=== PATIENT | female | born 1975 | race Caucasian/White ===

== ENCOUNTER 2017-04-17 11:45 | Emergency (ER) | payer SELFPAY ==
[~2017-04-17] VITALS: Ht 167.6 cm; Wt 86.2 kg
[2017-04-17 12:05] VITALS: BP 136/100
--- NOTE | 2017-04-17 12:28 | PHYS DOC ---
Past Medical History Past Medical History: Arthritis, Hypertension Past Surgical History: Cholecystectomy, Hysterectomy Alcohol Use: None Drug Use: None Adult General Chief Complaint Chief Complaint: Neck Pain [facility] HPI Patient is a 41 year old nail presents emergency Department stating approximately 3 weeks ago she fell down her stairs and was taken to another emergency department. She states that she had a fracture in her foot and was in a cam boot in which she has elected to take off on her own. Patient states that she also developed neck pain and discomfort. She states that she went back to the emergency department and they provided her with Valium. Patient is currently out of the Valium at this time and is presenting to the emergency department for pain control. Patient states that she stated she tried to follow- up with a doctor for her neck pain and discomfort and they did not accept her insurance. She states since that time her insurance is no longer in affect. Patient's denies any numbness or tingling in her lower extremities. She denies any further trauma or injury. She states that she is taken Aleve and ibuprofen with no relief. Patient states that she is allergic to Flexeril Toradol morphine and tramadol. Patient states that she has had a hysterectomy in the past. 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 Review of Systems Review of Systems Constitutional: Denies fever or chills [] Eyes: Denies change in visual acuity, redness, or eye pain [] HENT: Denies nasal congestion or sore throat [] Respiratory: Denies cough or shortness of breath [] Cardiovascular: No additional information not addressed in HPI [] GI: Denies abdominal pain, nausea, vomiting, bloody stools or diarrhea [] : Denies dysuria or hematuria [] Musculoskeletal: C/o neck pain denies joint pain Integument: Denies rash or skin lesions [] Neurologic: Denies headache, focal weakness or sensory changes [] Endocrine: Denies polyuria or polydipsia [] Allergies Allergies Allergies Coded Allergies Type Severity Reaction Last Updated Verified cyclobenzaprine Allergy Unknown 04/17/17 Yes ketorolac Allergy Unknown 04/17/17 Yes morphine Allergy Unknown 04/17/17 Yes promethazine Allergy Unknown 04/17/17 Yes tramadol Allergy Unknown 04/17/17 Yes Physical Exam Physical Exam Constitutional: Well developed, well nourished, no acute distress, non-toxic appearance. [] HENT: Normocephalic, atraumatic, bilateral external ears normal, oropharynx moist, no oral exudates, nose normal. [] Eyes: PERRLA, EOMI, conjunctiva normal, no discharge. [] Neck: Normal range of motion, no tenderness, supple, no stridor. [] Cardiovascular:Heart rate regular rhythm, no murmur [] Lungs & Thorax: Bilateral breath sounds clear to auscultation [] Skin: Warm, dry, no erythema, no rash. [] Back: Tenderness noted on the cervical spine and lower back. Extremities: No tenderness, no cyanosis, no clubbing, ROM intact, no edema. [] Neurologic: Alert and oriented X 3, normal motor function, normal sensory function, no focal deficits noted. [] Psychologic: Affect normal, judgement normal, mood normal. [] Current Patient Data Vital Signs Vital Signs Date Time Temp Pulse Resp B/P (MAP) Pulse Ox O2 Delivery O2 Flow Rate FiO2 04/17/17 12:05 97.9 88 18 97 Room Air 97.9 EKG EKG [] Radiology/Procedures Radiology/Procedures [] Course & Med Decision Making Course & Med Decision Making Pertinent Labs and Imaging studies reviewed. (See chart for details) Patient will be provided with a doctor's list in the emergency department as she states she does not have a primary care physician. Patient will be provided with Percocet here in the emergency department as she does have a lokie driver at the bedside. Patient will be encouraged to use ibuprofen Tylenol for pain and discomfort. Recommended following up with a primary care physician in the next week. Signs symptoms to return back to emergency department been provided. Patient agrees with discharge instructions treatment regimens and follow-up recommendations. [] Dragon Disclaimer Dragon Disclaimer This electronic medical record was generated, in whole or in part, using a voice recognition dictation system. Departure Departure Impression: Primary Impression: Cervical pain (neck) Disposition: 01 HOME, SELF-CARE Condition: STABLE Referrals: NO PCP (PCP) MOE WINN MD Patient Instructions: Soft Tissue Injury of the Neck, [id number] Additional Instructions: Activity as tolerated Tylenol or Ibuprofen for pain and discomfort Ice packs on 20 minutes and off 20 minutes If you cannot tolerate ice you may use warm moist packs to the area Followup with a primary care provider in 5-7 days Return to the emergency department as needed for signs and symptoms that become worse. TAB SHI WORKSITE WELLNESS PRACTITIONER April 17, 2017 12:28
[2017-04-17] MEDS ORDERED: HYDROcodone/APAP 5/325MG 1 TAB TABLET PO ONE (12:30)
== END 2017-04-17 12:40 | disposition home or self-care (01) ==
LOC: ER 11:45
DX: M54.2 Cervicalgia (principal); I10 Essential (primary) hypertension; M19.90 Unspecified osteoarthritis, unspecified site; Z90.710 Acquired absence of both cervix and uterus; Z90.49 Acquired absence of other specified parts of digestive tract; Z88.5 Allergy status to narcotic agent; Z88.6 Allergy status to analgesic agent; Z88.8 Allergy status to other drugs, medicaments and biological substances
CPT/HCPCS: 99282

== ENCOUNTER 2018-11-23 17:32 | Emergency (ER) | payer OTHER ==
[~2018-11-23] VITALS: Ht 167.6 cm; Wt 86.2 kg
[2018-11-23] MEDS ORDERED: HYDROcodone/APAP 5/325MG 1 TAB TABLET PO ONE (19:00)
--- NOTE | 2018-11-23 19:48 | RAD ---
Examination: ANKLE RIGHT 3V History: PAIN, NKI, H/O SURGICAL REPAIR Comparison/Correlation: None Findings: Total 3 images of the right ankle were obtained. Portable technique utilized. Ankle joint mortise is adequate. No acute fracture or bony destruction. Significant deformity of the distal tibial shaft and mid to distal fibular shaft noted related to previous fractures. Lucencies involving distal fibula presumably related to previous screw placement is noted. Punctate radiopaque densities which may represent shrapnel from prior injury noted. Mild soft tissue swelling about the lateral aspect of the ankle is present. Impression: No acute fracture. Electronically signed by: Ron Calvillo MD (11/23/2018 7:44 PM) [facility]
--- NOTE | 2018-11-23 19:57 | RAD ---
Examination: VENOUS LOWER EXTREMITY RIGHT History: RT ANT INF LOWER LEG PAIN AND SWELLING X 6 DAYS
PREV TIB/FIB SURGERY 1 YRS AGO

NO EVIDENCE OF DVT
SOFT TISSUE EDEMA IN MAYRA Comparison/Correlation: None Findings: Duplex right lower jackelyn venous ultrasound exam was performed. Color Doppler, spectral Doppler, and grayscale imaging was performed. Common femoral vein, partially visualized profunda femoris, superficial femoral vein, popliteal vein, peroneal veins, and posterior tibial veins are unremarkable with no thrombus. Soft tissue edema incidentally seen at the anterior aspect of the lower leg distally. Impression: No right lower extremity DVT. Subcutaneous edema at the distal right lower extremity anteriorly at the site of scarring from prior surgery. Electronically signed by: Ron Calvillo MD (11/23/2018 7:52 PM) [facility]
[2018-11-23 20:00] VITALS: BP 138/75
--- NOTE | 2018-11-23 20:19 | PHYS DOC ---
Past Medical History Past Medical History: Arthritis, DVT, Hypertension, Other Additional Past Medical Histor: right tib/fib fracture Past Surgical History: Cholecystectomy, Hysterectomy, Other Additional Past Surgical Histo: right tib fib fracture repair Alcohol Use: Occasionally Drug Use: None Adult General Chief Complaint Chief Complaint: LOWER EXT PAIN HPI HPI Patient is a 43 year old [f__sex] who presents with [] Review of Systems Review of Systems Constitutional: Denies fever or chills [] Eyes: Denies change in visual acuity, redness, or eye pain [] HENT: Denies nasal congestion or sore throat [] Respiratory: Denies cough or shortness of breath [] Cardiovascular: No additional information not addressed in HPI [] GI: Denies abdominal pain, nausea, vomiting, bloody stools or diarrhea [] : Denies dysuria or hematuria [] Musculoskeletal: Denies back pain or joint pain [] Integument: Denies rash or skin lesions [] Neurologic: Denies headache, focal weakness or sensory changes [] Endocrine: Denies polyuria or polydipsia [] All other systems were reviewed and found to be within normal limits, except as documented in this note. Current Medications Current Medications Current Medications Medications (Trade) Dose Ordered Sig/Myra Start Time Stop Time Status Last Admin Dose Admin Acetaminophen/ Hydrocodone Bitart (Lortab 5/325) 1 tab 1X ONCE 11/23/18 19:00 11/23/18 19:01 DC 11/23/18 19:05 1 TAB Allergies Allergies Allergies Coded Allergies Type Severity Reaction Last Updated Verified cyclobenzaprine Allergy Unknown 04/17/17 Yes ketorolac Allergy Unknown 04/17/17 Yes morphine Allergy Unknown 11/23/18 Yes promethazine Allergy Unknown 04/17/17 Yes tramadol Allergy Unknown 04/17/17 Yes Physical Exam Physical Exam Constitutional: Well developed, well nourished, no acute distress, non-toxic appearance. [] HENT: Normocephalic, atraumatic, bilateral external ears normal, oropharynx moist, no oral exudates, nose normal. [] Eyes: PERRLA, EOMI, conjunctiva normal, no discharge. [] Neck: Normal range of motion, no tenderness, supple, no stridor. [] Cardiovascular:Heart rate regular rhythm, no murmur [] Lungs & Thorax: Bilateral breath sounds clear to auscultation [] Abdomen: Bowel sounds normal, soft, no tenderness, no masses, no pulsatile masses. [] Skin: Warm, dry, no erythema, no rash. [] Back: No tenderness, no CVA tenderness. [] Extremities: No tenderness, no cyanosis, no clubbing, ROM intact, no edema. [] Neurologic: Alert and oriented X 3, normal motor function, normal sensory function, no focal deficits noted. [] Psychologic: Affect normal, judgement normal, mood normal. [] Current Patient Data Vital Signs Vital Signs Date Time Temp Pulse Resp B/P (MAP) Pulse Ox O2 Delivery O2 Flow Rate FiO2 11/23/18 19:05 20 99 Room Air 11/23/18 17:48 98.3 89 170/102 (124) 98.3 EKG EKG [] Radiology/Procedures Radiology/Procedures [] Course & Med Decision Making Course & Med Decision Making Pertinent Labs and Imaging studies reviewed. (See chart for details) [] Dragon Disclaimer Dragon Disclaimer This electronic medical record was generated, in whole or in part, using a voice recognition dictation system. Departure Departure Impression: Primary Impression: Ankle pain Disposition: HOME, SELF-CARE Condition: STABLE Referrals: UNKNOWN PCP NAME (PCP) Patient Instructions: Ankle Pain Additional Instructions: You were given pain medication in the emergency department. Do not drive or operate heavy machinery for at least 8 hours. Follow-up with your orthopedic surgeon for a recheck in 3 days if not improving or return to the emergency department if worsening. VANDANA CABRERA APRN Nov 23, 2018 20:19
== END 2018-11-23 20:27 | disposition home or self-care (01) ==
LOC: ER 17:32
DX: M25.571 Pain in right ankle and joints of right foot (principal); M19.90 Unspecified osteoarthritis, unspecified site; I10 Essential (primary) hypertension; Z86.718 Personal history of other venous thrombosis and embolism; Z90.49 Acquired absence of other specified parts of digestive tract; Z88.8 Allergy status to other drugs, medicaments and biological substances; Z88.5 Allergy status to narcotic agent
CPT/HCPCS: 73610; 93971; 99284